=== PATIENT | female | born 1985 | race Caucasian/White ===

== ENCOUNTER 2018-10-06 06:36 | Inpatient (IN) | payer BC ==
[~2018-10-06] VITALS: Ht 167.6 cm; Wt 76.4 kg
[~2018-10-06 06:36] MED LIST: MOTRIN 600600 MG/TAB PO; PERCOCET 325 MG1 TA2 PO; PRENATAL1 TA7 PO
[2018-10-07] VITALS (29 sets, daily range): BP systolic 83–110; BP diastolic 43–67; PULSE 60–99; TEMP 97.3–98.5
--- NOTE | 2018-10-07 04:45 | NUR ---
G2L1. 40-4. Ambulatory to LDR 2 with spouse. Clean gown on. EFM and TOCO explained and applied. Pt states she has been toni for the past couple of days but started to increase intensity tonight at 0200. Pt denies LOF or vaginal bleeding. Reports good movement. SVE 3/80/-3. Pt states she is mornings induction. Assessment and vital signs completed. Plan of care explained to pt and who verbalize understanding. Call light within reach. 0510: at nurse's station and updated on plan of care. reviews FHR strip. Admit orders received. See physican notification. 0525: IV started and labs obtained via IV site. LR bolus and Pen G infusing without difficulties. Consents signed. 0551: at bedside and plan of care explained to pt. AROM completed by at this time with moderate amount of clear fluid noted. SVE 4/80/-2 per provider. Pt wedge left and plan of care explained. Pt requesting epidural at this time. Hany HO notified. 0620: Hany HO at bedside for epidural placement. Procedure explained to pt per Hany. Pt assisted to EOB. Difficulty tracing FHR due to maternal position. Pulse ox applied and tracing. 0629: Test dose administered by Hany HO. See anesthesia records. 0635: Pt assisted to wedge left position. Plan of care and safety precautions explained. Report given to Kiersten Nath RN who will be assuming pts care at this time.
[2018-10-07 06:09] LABS: BASO % 0.2 % (0.0-2.0); EOS # 0.1 (0.0-0.7); EOS % 0.6 % (0-4.0); GRAN # 10.1 (1.4-6.5); HEMOGLOBIN 12.3 g/dl (12.5-16.0); LYMPH # 1.3 (1.2-3.4); LYMPH % 10.4 % (20.0-51.0); MEAN CELL VOLUME 92 fl (80.0-100.0); MEAN CORPUSCULAR HEMOGLOBIN 31 pg (27.0-31.0); MEAN CORPUSCULAR HGB CONC 34 g/dl (33.0-37.0); MEAN PLATELET VOLUME 9.9 fl (7.4-10.4); MONO % 7.9 % (1.7-9.3); PLATELET COUNT 178 K/mm3 (130-400); RED BLOOD COUNT 3.95 M/mm3 (4.10-5.30); REDCELL DISTRIBUTION WIDTH-CV 13.8 % (11.5-14.5)
[2018-10-07 06:10] LABS: HEMATOCRIT 36.3 % (37.0-47.0)
--- NOTE | 2018-10-07 06:40 | NUR ---
Report from Elvie Dejesus RN and care of patient assumed at this time. RN at bedside to introduce self to patient. Patient repositioned LL following epidural placement. Reports contraction pain is improving. Patient updated on plan of care. Will monitor per protocol.
[2018-10-07] MEDS ORDERED: PROMETRIUM100 MG PO (06:52)
--- NOTE | 2018-10-07 09:50 | NUR ---
Patient reports feeling pressure and requesting SVE. SVE /-1. Encouraged to notify RN with increased pressure. notified, see physician notification. 1000- Patient reports increased pressure and urge to push. KIERAE /+2. Dr. Ocampo notified via surgical aide and requested for delivery. Physician in surgery so instructed to call configuration specialist physician. Dr. Bañuelos called at 1002 and in transit for delivery. RN remains at bedside.
--- NOTE | 2018-10-07 10:10 | NUR ---
1009- Dr. Bañuelos at bedside. Nursery RN to bedside. Patient assisted to footplates and prepped for delivery. 1010- SVE 10/+2. Patient reports need to push. 1013- Patient begins pushing with contractions with physician at bedside. 1019- of viable male attended by Dr. Bañuelos. to mother's abdomen, care of to Elvie Dalton RN. Apgars 8/9/9. 1021- Spont. delivery of placenta. Pitocin bolus started at 333ml/hr/protocol. Fundal massage by RN, firm and at umbilicus. Second degree perineal laceration repaired by physician, patient tolerates well. Pericare given and ice pack applied. Patient updated on plan of care and safety. 1045- Fundal check noted moderate amount of free flow and multiple half dollar sized clots. Dr. Ocampo notified, see physician notification. Methergine IM given, see EMAR. 1050- Vaginal bleeding noted small amount of free flow. 1100- Vaginal bleeding improved. Dr. Ocampo at bedside. No new orders.
[2018-10-08] VITALS: BP 96/57; PULSE 63; TEMP 97.5
[2018-10-08 06:40] VITALS: BP 92/64; PULSE 92; TEMP 98
--- NOTE | 2018-10-08 09:04 | NUR ---
Initial visit; Parents thanked Topology Teacher for offering congratulations and God's blessings to their family for the of their son. Topology Teacher thanked them for choosing [facility].
[2018-10-08 15:25] VITALS: BP 90/53; PULSE 78; TEMP 97.7
[2018-10-08 19:30] VITALS: BP 92/58; PULSE 67; TEMP 98
[2018-10-09 06:50] VITALS: BP 94/55; PULSE 98; TEMP 97.3
[2018-10-09] MEDS ORDERED: IBU800 M1 PO (09:00)
[2018-10-09] MEDS ORDERED: PERCOCET 325 MG1 TA2 PO (09:01)
== END 2018-10-09 16:05 | disposition home or self-care (01) | DRG 807 ==
LOC: LDR 06:36 → OB 10-07 13:39
PROVIDERS: ADMIT Obstetrics & Gynecology
PROC: 10E0XZZ Delivery of Products of Conception, External Approach (ICD-10-PCS; principal; 2018-10-07)
PROC: 0KQM0ZZ Repair Perineum Muscle, Open Approach (ICD-10-PCS; 2018-10-07)
DX: O99.824 Streptococcus B carrier state complicating childbirth (principal); Z37.0 Single live birth; O70.1 Second degree perineal laceration during delivery; Z3A.40 40 weeks gestation of pregnancy
CPT/HCPCS: J2210; J2405; J2540; J2590; J7120